=== PATIENT | male | born 1935 | race American Indian/Alaskan Native ===

== ENCOUNTER 2022-09-08 14:48 | Emergency (ER) | payer OTHER ==
[~2022-09-08] VITALS: Ht 180.3 cm; Wt 95.3 kg
[2022-09-08 15:02] VITALS: BP_SYST 128
[2022-09-08] MEDS ORDERED: KETOROLAC TROMETHAMINE 60 MG/2 ML VIAL IM ONE (17:30)
[2022-09-08] MEDS ORDERED: DIAZEPAM 5 MG TABLET (VALIUM) PO ONE (17:30)
[2022-09-08 19:28] LABS: BILIRUBIN,URINE NEGATIVE (NEGATIVE); COLOR,URINE YELLOW (YELLOW); GLUCOSE,URINE NEGATIVE (NEGATIVE); KETONES,URINE NEGATIVE (NEGATIVE); LEUKOCYTE ESTERASE ,URINE NEGATIVE (NEGATIVE); NITRITE, URINE NEGATIVE (NEGATIVE); PROTEIN URINE 2+ (NEGATIVE); UROBILINOGEN,URINE 0.2 (0.2-1.0)
[2022-09-08 20:07] LABS: BLOOD, URINE TRACE (NEGATIVE); CLARITY/URINE SLIGHTLY HAZY (CLEAR)
[2022-09-08 20:12] LABS: RBC,URINE 0-3 /HPF (0-3); WBC,URINE 0-3 /HPF (0-3)
[2022-09-08 20:13] LABS: BACTERIA,URINE FEW /HPF (None Seen); FINE GRANULAR CASTS,URINE 0-10 /LPF (None Seen); HYALINE CASTS, URINE 0-10 /LPF (None Seen); MUCUS,URINE 2+ /LPF (None Seen)
[2022-09-08 21:00] VITALS: BP_SYST 150
[2022-09-08] MEDS ORDERED: DICL20GE TP (21:15)
[2022-09-08] MEDS ORDERED: DICL50TA9 PO (21:15)
== END 2022-09-08 23:20 | disposition home or self-care (01) ==
LOC: SED 14:48
DX: M51.36 Other intervertebral disc degeneration, lumbar region (principal); M54.50 Low back pain, unspecified; Z79.899 Other long term (current) drug therapy
CPT/HCPCS: 99285; 72131; 81000; 76376; 96372; J1885